=== PATIENT | male | born 1950 | race Caucasian/White ===

== ENCOUNTER 2023-05-04 13:00 | Inpatient (IN) ==
[2023-05-04] MEDS ORDERED: LORazepam 2 mg VIAL 1 ml ONE (13:13)
[2023-05-04] MEDS: LORazepam 2 mg VIAL 1 ml IV PUSH ONE (13:15)
[2023-05-04] MEDS: Iodixanol (CONTRAST) 320 MG/ML 100 ML SDV IV ONE (13:20)
[2023-05-04 13:25] LABS: ABS Basophils 0.2 10^3/uL (0.0-0.1); ABS Lymphocytes 0.6 10^3/uL (1.0-4.8); ABS Monocytes 0.7 10^3/uL (0.0-1.1); ABS Neutrophils 5.8 10^3/uL (1.5-7.6); ABS Nucleated RBC 0.02 10^3/ul; Eosinophil % 0.2 %; Hematocrit 46.8 % (38-53); Hemoglobin 16.2 g/dL (13.2-16.3); Lymphocyte % 8.8 %; Mean Corpuscular Hemoglobin 32.8 pg (27-33); Mean Corpuscular Hgb Conc 34.6 g/dL (31-36); Mean Corpuscular Volume 94.8 fL (80-97); Mean Platelet Volume 6.9 fL (7.5-11.2); Nucleated Red Blood Cells % 0.3 %/100WBC (0.0-0.8); Platelet Count 284 10^3/uL (150-450); Red Blood Count 4.93 10^6/uL (4.06-5.63); Red Cell Distribution Width 13.5 % (12-17); White Blood Count 7.3 10^3/uL (3.6-10.2)
[2023-05-04] MEDS: TENECTEPLASE 50 MG VIAL KIT 5 MG/ML (reconstituted) IV ONE (13:38)
[2023-05-04 13:46] LABS: Activated Partial Thrombo Time 30.8 seconds (26.0-38.0); INR 0.99 (0.83-1.13)
[2023-05-04] MEDS ORDERED: Lorazepam PYXIS KEY PRN (13:51)
[2023-05-04 14:09] LABS: Albumin 3.9 g/dL (3.2-5.2); Albumin/Globulin Ratio 1.4 (1-3); Calcium 9.1 mg/dL (8.6-10.3); Creatinine, Serum 1.13 mg/dL (0.67-1.17); Direct Bilirubin 0.2 mg/dL (0.03-0.18); Globulin 2.7 g/dL (2-4); HDL Cholesterol 44.2 mg/dL; Potassium 4.5 mmol/L (3.5-5.0); Total Bilirubin 2.2 mg/dL (0.2-1.0); Total Protein 6.6 g/dL (6.4-8.9); eGFR CKD-EPI 67.8 (>60)
[2023-05-04 16:05] LABS: C Reactive Protein 25.08 mg/L (<8.01)
[2023-05-04 17:18] LABS: TSH Ultra Thyroid Stim Horm 1.53 mcIU/mL (0.34-5.60)
[2023-05-04] MEDS: ACYCLOVIR IVPB SCH (17:36)
[2023-05-04] MEDS: NS 0.9% IVPB SCH (17:36)
[2023-05-04] MEDS: cefTRIAXone 2 gm/50 mL D5W 2 GM/50 ML BAG IV SCH (17:37)
[2023-05-04 18:56] LABS: Erythrocyte Sed Rate 26 mm/Hr (0-19)
[2023-05-05 05:43] LABS: ABS Lymphocytes 0.4 10^3/uL (1.0-4.8); ABS Monocytes 0.5 10^3/uL (0.0-1.1); ABS Neutrophils 5.6 10^3/uL (1.5-7.6); ABS Nucleated RBC 0.01 10^3/ul; Eosinophil % 0.6 %; Hematocrit 44.9 % (38-53); Hemoglobin 16.1 g/dL (13.2-16.3); Lymphocyte % 5.7 %; Mean Corpuscular Hemoglobin 33.4 pg (27-33); Mean Corpuscular Hgb Conc 35.9 g/dL (31-36); Mean Corpuscular Volume 93.2 fL (80-97); Nucleated Red Blood Cells % 0.2 %/100WBC (0.0-0.8); Platelet Count 245 10^3/uL (150-450); Red Blood Count 4.81 10^6/uL (4.06-5.63); Red Cell Distribution Width 13.3 % (12-17); White Blood Count 6.5 10^3/uL (3.6-10.2)
[2023-05-05 05:48] LABS: Urine Appearance Clear; Urine Bilirubin Negative (Negative); Urine Blood Negative (Negative); Urine Color Yellow; Urine Glucose Negative (Negative); Urine Ketones Negative (Negative); Urine Nitrite Negative (Negative); Urine Protein Negative (Negative); Urine Specific Gravity 1.031 (1.002-1.030); Urine Urobilinogen Negative (Negative)
[2023-05-05 06:15] LABS: ALT 25 U/L (7-52); Albumin 3.6 g/dL (3.2-5.2); Albumin/Globulin Ratio 1.4 (1-3); Alkaline Phosphatase 101 U/L (35-149); Anion Gap 10 mmol/L (2-16); Blood Urea Nitrogen 16 mg/dL (6-24); CO2 Carbon Dioxide 24 mmol/L (22-32); Calcium 8.7 mg/dL (8.6-10.3); Chloride 103 mmol/L (101-111); Creatinine, Serum 0.94 mg/dL (0.67-1.17); Globulin 2.5 g/dL (2-4); Glucose 87 mg/dL (70-100); Magnesium 2.1 mg/dL (1.9-2.7); Sodium 137 mmol/L (135-145); Total Bilirubin 2.5 mg/dL (0.2-1.0); Total Protein 6.1 g/dL (6.4-8.9); eGFR CKD-EPI 84.5 (>60)
[2023-05-05] MEDS: Cyanocobalamin INJ 1,000 MCG/ML VIAL 1 ML VIAL IM ONE (09:31)
[2023-05-05] MEDS ORDERED: Lorazepam PYXIS KEY PRN ×2 (15:36→19:15)
[2023-05-05] MEDS: LORazepam 2 mg VIAL 1 ml IV PUSH ONE (15:46)
[2023-05-05] MEDS: Haloperidol 5 mg/ml SDV IV/IM 5 MG/ML AMP IV SLOW PU ONE (16:00)
[2023-05-05] MEDS: Lidocaine 1% VIAL 10 MG/ML 30 ML VIAL ONE (16:58)
[2023-05-05] MEDS: Haloperidol 5 mg/ml SDV IV/IM 5 MG/ML AMP ONE (17:26)
[2023-05-05] MEDS ORDERED: LORazepam 2 mg VIAL 1 ml IV PUSH PRN (19:15)
[2023-05-05] MEDS: Midazolam 2 mg/2 ml VIAL 1 mg/ml 2 ml VIAL (2 mg) IV SLOW PU ONE ×2 (19:25→20:32)
[2023-05-05] MEDS: Dexmedetomidine 1,000 MCG in NS 0.9% 250 ml 240 ML IV SCH (19:55)
[2023-05-05] MEDS: Midazolam 2 mg/2 ml VIAL 1 mg/ml 2 ml VIAL (2 mg) ONE (21:17)
[2023-05-05] MEDS: cefTRIAXone 2 gm/50 mL D5W 2 GM/50 ML BAG IV SCH (23:30)
[2023-05-06 01:26] LABS: Body Fluid Source Cerebral Spinal
[2023-05-06 01:29] LABS: Body Fluid Appearance Clear; Body Fluid Color Colorless; CSF Tube # 4
[2023-05-06] MEDS ORDERED: Ketamine HCL 50 mg/ml 10 ml VIAL (500 MG) ONE (01:38)
[2023-05-06] MEDS ORDERED: Rocuronium 50 mg VIAL 10 mg/ml 5 ml VIAL (50 mg) ONE (01:38)
[2023-05-06] MEDS: Norepinephrine 4 MG/250mL D5W 4,000 MCG/250 ML BAG IV SCH (01:50)
[2023-05-06] MEDS: Propofol 10 mg/ml 100 ML BTL 1,000 MG/100 ML BTL IV SCH (01:50)
[2023-05-06 01:56] LABS: CSF Body Fluid WBC 8 /mcL
[2023-05-06 02:04] LABS: CSF Glucose 44 mg/dL (40-70)
[2023-05-06] MEDS: Phenylephrine 40 mcg/mL 10mL (400mcg) SYRINGE IV PUSH PRN (02:21)
[2023-05-06] MEDS: Norepinephrine 4 MG/250mL D5W 4,000 MCG/250 ML BAG IV ONE (02:54)
[2023-05-06] MEDS: Chlorhexidine MOUTHWASH 0.12% 15 ML UDC TOPICAL SCH (03:28)
[2023-05-06] MEDS: Rocuronium 50 mg VIAL 10 mg/ml 5 ml VIAL (50 mg) ONE (03:28)
[2023-05-06] MEDS: Propofol 10 mg/ml 100 ML BTL 1,000 MG/100 ML BTL ONE (03:28)
[2023-05-06] MEDS: Midazolam 5 mg/5 ml VIAL 1 mg/ml 5 ml VIAL (5 mg) IV SLOW PU ONE (03:29)
[2023-05-06] MEDS: Midazolam 5 mg/5 ml VIAL 1 mg/ml 5 ml VIAL (5 mg) ONE (03:30)
[2023-05-06 03:31] LABS: Body Fluid Mono 44 %; Body Fluid Total Cells Counted 27
[2023-05-06 03:42] LABS: Urine Appearance Clear; Urine Bilirubin Negative (Negative); Urine Blood 2+ (Negative); Urine Color Light-Yellow; Urine Glucose Negative (Negative); Urine Ketones Trace (Negative); Urine Nitrite Negative (Negative); Urine Protein Negative (Negative); Urine Specific Gravity 1.012 (1.002-1.030); Urine Urobilinogen Negative (Negative); Urine pH 5.5 (5.0-8.0)
[2023-05-06 04:08] LABS: Urine Bacteria Absent /HPF (Absent); Urine Red Blood Cell 3+(>10/hpf) /HPF (0-Trace); Urine White Blood Cell Trace(0-5/hpf) /HPF (0-Trace)
[2023-05-06] MEDS: Phenylephrine DRIP 0.2 MG/ML in NS 0.9% 250 ML (PHA mix) IV SCH (05:00)
[2023-05-06 05:58] LABS: Resp Rate 16
[2023-05-06 06:01] LABS: PCO2 Arterial 35 mmHg (35-45); PO2 Arterial 116 mmHg (80-100)
[2023-05-06] MEDS: Phenylephrine 40 mcg/mL 10mL (400mcg) SYRINGE ONE ×2 (07:36)
[2023-05-06] MEDS ORDERED: Phenylephrine 40 mcg/mL 10mL (400mcg) SYRINGE IV PUSH PRN (07:47)
[2023-05-06] MEDS: Pantoprazole VIAL 40 MG VIAL IV SCH (08:14)
[2023-05-06] MEDS: levETIRAcetam 1000MG IVPREMIX 1,000 MG/100 ML BAG IVPB ONE (12:16)
[2023-05-06 13:00] LABS: ABS Lymphocytes 0.3 10^3/uL (1.0-4.8); ABS Monocytes 0.5 10^3/uL (0.0-1.1); ABS Neutrophils 4.7 10^3/uL (1.5-7.6); ABS Nucleated RBC 0.03 10^3/ul; Eosinophil % 0.5 %; Hematocrit 44.9 % (38-53); Hemoglobin 15.9 g/dL (13.2-16.3); Mean Corpuscular Hgb Conc 35.5 g/dL (31-36); Mean Corpuscular Volume 93.1 fL (80-97); Mean Platelet Volume 7.1 fL (7.5-11.2); Nucleated Red Blood Cells % 0.5 %/100WBC (0.0-0.8); Platelet Count 281 10^3/uL (150-450); Red Blood Count 4.82 10^6/uL (4.06-5.63); Red Cell Distribution Width 13.7 % (12-17); White Blood Count 5.6 10^3/uL (3.6-10.2)
[2023-05-06 13:40] LABS: Calcium 8.7 mg/dL (8.6-10.3); Creatinine, Serum 0.95 mg/dL (0.67-1.17); Magnesium 2.1 mg/dL (1.9-2.7); Phosphorus 4.8 mg/dL (2.5-5.0); Potassium 4.2 mmol/L (3.5-5.0); Potassium Redraw 4.2 mmol/L (3.5-5.0); eGFR CKD-EPI 83.5 (>60)
[2023-05-06] MEDS: levETIRAcetam IV 750 MG in NS 0.9% 100 ml BAG 100 ML IVPB SCH (13:40)
[2023-05-06 14:32] LABS: High Sensitivity Troponin 1 Hr 3503 pg/mL (<20)
[2023-05-07 04:29] LABS: ABS Lymphocytes 0.3 10^3/uL (1.0-4.8); ABS Monocytes 0.6 10^3/uL (0.0-1.1); ABS Neutrophils 5.7 10^3/uL (1.5-7.6); ABS Nucleated RBC 0.01 10^3/ul; Eosinophil % 0.5 %; Hematocrit 43.4 % (38-53); Hemoglobin 15.4 g/dL (13.2-16.3); Lymphocyte % 4.9 %; Mean Corpuscular Hgb Conc 35.5 g/dL (31-36); Mean Corpuscular Volume 92.9 fL (80-97); Mean Platelet Volume 7.4 fL (7.5-11.2); Nucleated Red Blood Cells % 0.2 %/100WBC (0.0-0.8); Platelet Count 274 10^3/uL (150-450); Red Blood Count 4.67 10^6/uL (4.06-5.63); Red Cell Distribution Width 13.6 % (12-17); White Blood Count 6.6 10^3/uL (3.6-10.2)
[2023-05-07 04:45] LABS: Calcium 8.2 mg/dL (8.6-10.3); Creatinine, Serum 0.96 mg/dL (0.67-1.17); Magnesium 2.1 mg/dL (1.9-2.7); Phosphorus 4.3 mg/dL (2.5-5.0); Potassium 4.2 mmol/L (3.5-5.0); eGFR CKD-EPI 82.4 (>60)
[2023-05-07] MEDS: fentaNYL INFUSION 50 mcg/mL VL 2,500 MCG/50 ML VIAL IV SCH (11:10)
[2023-05-07] MEDS ORDERED: levETIRAcetam IV 750 MG in NS 0.9% 100 ml BAG 100 ML IVPB SCH (12:00)
[2023-05-07 13:42] LABS: Albumin 3.3 g/dL (3.2-5.2); Albumin/Globulin Ratio 1.4 (1-3); Direct Bilirubin 0.2 mg/dL (0.03-0.18); Globulin 2.4 g/dL (2-4); Indirect Bilirubin 0.9 mg/dL (0.3-1.0); Total Bilirubin 1.1 mg/dL (0.2-1.0); Total Protein 5.7 g/dL (6.4-8.9)
[2023-05-07 14:36] LABS: Anaplasma phagocytophilum Negative (Negative); B. miyamotoi PCR, B Negative (Negative); Babesia divergens/MO-1 Negative (Negative); Babesia ducani Negative (Negative); Ehrlichia chaffeensis Negative (Negative); Ehrlichia ewingii/canis Negative (Negative); Ehrlichia muris eauclairensis Negative (Negative)
[2023-05-08 04:20] LABS: ABS Basophils 0.1 10^3/uL (0.0-0.1); ABS Lymphocytes 0.2 10^3/uL (1.0-4.8); ABS Monocytes 0.6 10^3/uL (0.0-1.1); Eosinophil % 0.2 %; Hematocrit 41.3 % (38-53); Hemoglobin 14.5 g/dL (13.2-16.3); Lymphocyte % 2.7 %; Mean Corpuscular Hemoglobin 32.9 pg (27-33); Mean Corpuscular Hgb Conc 35.2 g/dL (31-36); Mean Corpuscular Volume 93.5 fL (80-97); Mean Platelet Volume 7.2 fL (7.5-11.2); Platelet Count 226 10^3/uL (150-450); Red Blood Count 4.42 10^6/uL (4.06-5.63); Red Cell Distribution Width 13.6 % (12-17)
[2023-05-08 05:03] LABS: Calcium 7.7 mg/dL (8.6-10.3); Creatinine, Serum 0.83 mg/dL (0.67-1.17); Potassium 4.1 mmol/L (3.5-5.0); eGFR CKD-EPI 91.3 (>60)
[2023-05-08] MEDS: Lidocaine 1% VIAL 10 MG/ML 30 ML VIAL ONE (10:20)
[2023-05-08] MEDS: Lidocaine 1% VIAL 10 MG/ML 30 ML VIAL INJ ONE (16:09)
[2023-05-08 17:21] LABS: B. burgdorferi PCR Negative (Negative); B. garinii/B. afzellii PCR Negative (Negative); Lyme Disease Source CSF
[2023-05-08] MEDS: Lactated Ringers 1000 ml BAG 1,000 ML IV ONE (17:25)
[2023-05-08] MEDS: Furosemide 40 mg/4 ml IV VIAL IV ONE (18:25)
[2023-05-08 19:09] LABS: HSV 1 PCR, CSF Negative (Negative); HSV 2 PCR, CSF Negative (Negative)
[2023-05-09 04:22] LABS: ABS Lymphocytes 0.3 10^3/uL (1.0-4.8); ABS Monocytes 0.8 10^3/uL (0.0-1.1); ABS Neutrophils 8.6 10^3/uL (1.5-7.6); ABS Nucleated RBC 0.01 10^3/ul; Eosinophil % 0.4 %; Hematocrit 39.4 % (38-53); Hemoglobin 13.8 g/dL (13.2-16.3); Lymphocyte % 3.1 %; Mean Corpuscular Hemoglobin 33.1 pg (27-33); Mean Corpuscular Hgb Conc 35.1 g/dL (31-36); Mean Corpuscular Volume 94.2 fL (80-97); Mean Platelet Volume 7.3 fL (7.5-11.2); Nucleated Red Blood Cells % 0.1 %/100WBC (0.0-0.8); Platelet Count 178 10^3/uL (150-450); Red Blood Count 4.18 10^6/uL (4.06-5.63); Red Cell Distribution Width 13.6 % (12-17); White Blood Count 9.7 10^3/uL (3.6-10.2)
[2023-05-09 04:58] LABS: Creatinine, Serum 0.9 mg/dL (0.67-1.17); Magnesium 2.2 mg/dL (1.9-2.7); Phosphorus 3.3 mg/dL (2.5-5.0); Potassium 4.9 mmol/L (3.5-5.0); eGFR CKD-EPI 89.1 (>60)
[2023-05-09 09:45] LABS: Herpes Simplex Virus I IgG AB Positive (Negative); Herpes Simplex Virus II IgG AB Negative (Negative)
[2023-05-09 10:07] LABS: Activated Partial Thrombo Time 30.1 seconds (26.0-38.0); INR 1.29 (0.83-1.13)
[2023-05-09] MEDS: fentaNYL INFUSION 50 mcg/mL VL 2,500 MCG/50 ML VIAL IV SCH (10:19)
[2023-05-09 10:27] LABS: Albumin 2.8 g/dL (3.2-5.2); Albumin/Globulin Ratio 1.1 (1-3); Calcium 7.7 mg/dL (8.6-10.3); Globulin 2.5 g/dL (2-4); Potassium 4.8 mmol/L (3.5-5.0); Total Bilirubin 0.8 mg/dL (0.2-1.0); Total Protein 5.3 g/dL (6.4-8.9); eGFR CKD-EPI 78.5 (>60)
[2023-05-09 12:02] LABS: HDL Cholesterol 30.7 mg/dL
[2023-05-09 14:55] LABS: ABS Lymphocytes 0.3 10^3/uL (1.0-4.8); ABS Monocytes 0.7 10^3/uL (0.0-1.1); ABS Neutrophils 7.5 10^3/uL (1.5-7.6); Eosinophil % 0.3 %; Hematocrit 38.9 % (38-53); Hemoglobin 13.5 g/dL (13.2-16.3); Lymphocyte % 3.3 %; Mean Corpuscular Hemoglobin 32.8 pg (27-33); Mean Corpuscular Hgb Conc 34.6 g/dL (31-36); Mean Corpuscular Volume 94.8 fL (80-97); Mean Platelet Volume 7.4 fL (7.5-11.2); Platelet Count 169 10^3/uL (150-450); Red Cell Distribution Width 13.9 % (12-17); White Blood Count 8.5 10^3/uL (3.6-10.2)
[2023-05-09 15:02] LABS: CSF VDRL Negative (Negative)
[2023-05-10 04:21] LABS: ABS Lymphocytes 0.3 10^3/uL (1.0-4.8); ABS Monocytes 0.4 10^3/uL (0.0-1.1); ABS Neutrophils 6.6 10^3/uL (1.5-7.6); ABS Nucleated RBC 0.01 10^3/ul; Eosinophil % 0.5 %; Hematocrit 37.6 % (38-53); Hemoglobin 13.4 g/dL (13.2-16.3); Mean Corpuscular Hemoglobin 33.7 pg (27-33); Mean Corpuscular Hgb Conc 35.5 g/dL (31-36); Mean Corpuscular Volume 94.9 fL (80-97); Mean Platelet Volume 7.6 fL (7.5-11.2); Nucleated Red Blood Cells % 0.1 %/100WBC (0.0-0.8); Platelet Count 174 10^3/uL (150-450); Red Blood Count 3.97 10^6/uL (4.06-5.63); Red Cell Distribution Width 13.8 % (12-17); White Blood Count 7.3 10^3/uL (3.6-10.2)
[2023-05-10 04:27] LABS: INR 1.2 (0.83-1.13)
[2023-05-10 04:55] LABS: Albumin 2.9 g/dL (3.2-5.2); Albumin/Globulin Ratio 1.2 (1-3); Calcium 8.1 mg/dL (8.6-10.3); Creatinine, Serum 0.88 mg/dL (0.67-1.17); Globulin 2.5 g/dL (2-4); Magnesium 2.4 mg/dL (1.9-2.7); Phosphorus 3.4 mg/dL (2.5-5.0); Potassium 4.8 mmol/L (3.5-5.0); Total Bilirubin 0.7 mg/dL (0.2-1.0); Total Protein 5.4 g/dL (6.4-8.9); eGFR CKD-EPI 89.7 (>60)
[2023-05-10 11:23] LABS: Plasma Free Metanephrine <0.20 nmol/L (<0.50); Plasma Free Normetanephrine 0.28 nmol/L (<0.90)
[2023-05-10] MEDS ORDERED: Ondansetron 4 mg VIAL 2 MG/ML 2 ml VIAL IV PRN (15:50)
[2023-05-10] MEDS ORDERED: LORazepam 2 mg VIAL 1 ml IV PUSH PRN (15:52)
[2023-05-10] MEDS: Morphine PCA ADULT 5 MG/ML 30 ML PCA SCH (17:46)
[2023-05-10] MEDS ORDERED: Midazolam 2 mg/2 ml VIAL 1 mg/ml 2 ml VIAL (2 mg) IV SLOW PU PRN (18:08)
[2023-05-10] MEDS: Morphine 4 MG/ML VIAL (1 ml) IV PRN (18:17)
[2023-05-10] MEDS: Haloperidol 5 mg/ml SDV IV/IM 5 MG/ML AMP IV SLOW PU PRN (18:17)
[2023-05-10] MEDS: Haloperidol 5 mg/ml SDV IV/IM 5 MG/ML AMP ONE (18:34)
[2023-05-10] MEDS: Scopolamine 1 mg/72hr PATCH TRANSDERM SCH ×2 (18:48→23:04)
[2023-05-11] MEDS: Morphine PCA ADULT 5 MG/ML 30 ML PCA SCH ×2 (14:46→17:17)
[2023-05-11] MEDS: Atropine 1% (ORAL/SL) 15 ML BTL SL PRN (14:52)
[2023-05-12 13:59] VITALS: BP 164/94
[2023-05-12 18:19] LABS: AGNA-1, CSF Negative (Negative); ANNA-1, CSF Negative (Negative); ANNA-2, CSF Negative (Negative); ANNA-3, CSF Negative (Negative); Amphiphysin Ab, CSF Negative (Negative); CRMP-5-IgG, CSF Negative (Negative); IFA Notes None.; PCA-1, CSF Negative (Negative); PCA-2, CSF Negative (Negative); PCA-Tr, CSF Negative (Negative)
[2023-05-13] MEDS: Acetaminophen IV 1 GM/100ML 1,000 MG/100 ML BAG IV PRN (05:21)
[2023-05-13] MEDS: Morphine PCA ADULT 5 MG/ML 30 ML PCA SCH (17:30)
[2023-05-13 20:46] LABS: Urine Collection Duration 24 h; Urine Total Metanephrines 474 mcg/24 h; Urine Volume 800 mL
[2023-05-14] MEDS: Morphine PCA ADULT 5 MG/ML 30 ML PCA SCH (12:58)
[2023-05-14] MEDS ORDERED: Lorazepam PYXIS KEY PRN (21:33)
[2023-05-14] MEDS ORDERED: LORazepam 2 mg VIAL 1 ml IV PUSH PRN (21:33)
[2023-05-14] MEDS ORDERED: diazePAM INJ CARPUJECT 5 MG/ML SYRINGE IV PRN (22:05)
[2023-05-14] MEDS: Acetaminophen IV 1 GM/100ML 1,000 MG/100 ML BAG IV PRN (23:12)
[2023-05-15] MEDS ORDERED: Morphine PCA ADULT 5 MG/ML 30 ML PCA SCH (07:43)
== END 2023-05-15 09:17 | disposition expired | DRG 61 ==
LOC: ED 13:00 → SUATTDRO 14:50 → EDHOLD 14:50 → ICU 16:10 → MED 05-12 15:00
PROVIDERS: ADMIT Internal Medicine Pulmonary Disease; ATTEND Hospitalist